=== PATIENT | female | born 1950 | race Asian ===

== ENCOUNTER → 2019-11-03 | Outpatient (CLI) | payer MEDICARE ==
[~2019-11-03] MED LIST: AMLO-150 PO; ATOR20TA37 PO; HYDR25TA6 PO; LIDOCAINE 1%, 20ML ONE; LIDOCAINE 1%-EPI 1:100K, 20ML ONE; LOSA100T14 PO; METO-93 PO; SODIUM BICARBONATE 4.2%, 5ML ONE
== END | disposition home or self-care (01) ==
LOC: CFH 07:13
PROVIDERS: ATTEND Surgery
DX: N63.10 Unspecified lump in the right breast, unspecified quadrant (principal); C50.811 Malignant neoplasm of overlapping sites of right female breast
CPT/HCPCS: 19285; 77065; J3490

== ENCOUNTER 2019-11-06 08:48 | Day surgery (SDC) | payer MEDICARE ==
[~2019-11-06] VITALS: Ht 154.9 cm; Wt 68.4 kg
[2019-11-06] MEDS ORDERED: HYDR25TA6 PO (09:09)
[2019-11-06] MEDS ORDERED: AMLO-150 PO (09:09)
[2019-11-06] MEDS ORDERED: ATOR20TA37 PO (09:09)
[2019-11-06] MEDS ORDERED: LOSA100T14 PO (09:09)
[2019-11-06] MEDS ORDERED: METO-93 PO (09:09)
[2019-11-06] MEDS ORDERED: ISOSULFAN BLUE 10 MG/ML, 5ML IV ONE (09:29)
[2019-11-06] MEDS ORDERED: BUPIVACAINE/PF-EPI 0.5% 1:200K ONE (09:29)
[2019-11-06 10:25] VITALS: BP 170/91
[2019-11-06] MEDS ORDERED: LACTATED RINGERS 1,000 ML IV ONE (10:30)
[2019-11-06] MEDS ORDERED: MIDAZOLAM 1 MG/ML, 2ML ONE (10:44)
[2019-11-06] MEDS ORDERED: FENTANYL PF 250 MCG/5ML ONE (10:45)
[2019-11-06] MEDS ORDERED: LIDOCAINE GEL 2%, 5ML ONE (10:48)
[2019-11-06 10:54] LABS: ALANINE AMINOTRANSFERASE 25 U/L (12-78); ALBUMIN 4.1 g/dL (3.4-5.0); ANION GAP 8 mmol/L (5-15); CALCIUM 8.9 mg/dL (8.5-10.1); CHLORIDE 107 mmol/L (98-107)
[2019-11-06 10:57] LABS: ALKALINE PHOSPHATASE 113 U/L (45-117); BILIRUBIN,TOTAL 0.7 mg/dL (0.2-1.0); CREATININE 0.95 mg/dL (0.55-1.02); TOTAL PROTEIN 8.6 g/dL (6.4-8.2)
[2019-11-06] MEDS ORDERED: OXYcodone 5 MG/5 ML ORAL.SOL UDC PO PRN (11:00)
[2019-11-06] MEDS ORDERED: MEPERIDINE/PF 25MG/ML,1ML IVPush PRN (11:00)
[2019-11-06] MEDS ORDERED: hydrALAzine 20 MG/ML, 1ML IV PRN (11:00)
[2019-11-06] MEDS ORDERED: FENTANYL PF 100 MCG/2ML IV PRN (11:00)
[2019-11-06] MEDS ORDERED: HALOPERIDOL 5 MG/ML IV PRN (11:00)
[2019-11-06] MEDS ORDERED: HYDROmorphone 2 MG/ML, 1ML IVPush PRN (11:00)
[2019-11-06] MEDS ORDERED: PROMETHAZINE 25 MG/ML, 1ML IV PRN (11:00)
[2019-11-06] MEDS ORDERED: LABETALOL 5MG/ML, 20ML IV PRN (11:00)
[2019-11-06] MEDS ORDERED: EPHEDRINE 50 MG/ML, 1ML ONE (11:24)
[2019-11-06] MEDS ORDERED: ONDANSETRON 2MG/ML, 2ML ONE (12:16)
[2019-11-06] MEDS ORDERED: ROCURONIUM 10MG/ML,5ML ONE (12:16)
[2019-11-06] MEDS ORDERED: GLYCOPYRROLATE 0.2MG/1ML, 5ML ONE (12:16)
[2019-11-06] MEDS ORDERED: PROPOFOL 10 MG/ML, 20ML ONE (12:16)
[2019-11-06] MEDS ORDERED: DEXAMETHASONE 4 MG/ML, 1ML ONE (12:16)
[2019-11-06] MEDS ORDERED: NEOSTIGMINE 1 MG/ML, 10ML ONE (12:16)
[2019-11-06] MEDS ORDERED: CEFAZOLIN 1,000 MG ONE (12:16)
[2019-11-06] MEDS ORDERED: SUCCINYLCHOLINE 20 MG/ML, 10ML ONE (12:16)
[2019-11-06] MEDS ORDERED: MORPHINE SULFATE 4 MG/ML, 1ML IVPush PRN (12:30)
[2019-11-06] MEDS ORDERED: ONDANSETRON 2MG/ML, 2ML IVPush PRN (12:30)
[2019-11-06] MEDS ORDERED: HYDROcodone/APAP 7.5-325MG/15ML UDC PO PRN (12:30)
== END 2019-11-06 16:15 | disposition home or self-care (01) ==
LOC: OUT 08:48
PROVIDERS: ATTEND Surgery
DX: C50.811 Malignant neoplasm of overlapping sites of right female breast (principal); I10 Essential (primary) hypertension; Z17.0 Estrogen receptor positive status [ER+]; Z79.899 Other long term (current) drug therapy; Z85.3 Personal history of malignant neoplasm of breast; Z91.013 Allergy to seafood; Z92.21 Personal history of antineoplastic chemotherapy
CPT/HCPCS: 19301; 36415; 38525; 38792; 77065; 80053; 88305; 88307; 88333; 93005; A9541; J0330; J0690; J1100; J2250; J2405; J2704; J2710; J3010

== ENCOUNTER → 2019-11-27 | Outpatient (CLI) | payer MEDICARE ==
[~2019-11-27] MED LIST changes: -LIDOCAINE 1%, 20ML ONE; -LIDOCAINE 1%-EPI 1:100K, 20ML ONE; -SODIUM BICARBONATE 4.2%, 5ML ONE
== END | disposition home or self-care (01) ==
LOC: ROC 08:20
PROVIDERS: ATTEND Radiology Radiation Oncology
DX: C50.911 Malignant neoplasm of unspecified site of right female breast (principal); I25.10 Atherosclerotic heart disease of native coronary artery without angina pectoris; M10.9 Gout, unspecified; E78.00 Pure hypercholesterolemia, unspecified; I10 Essential (primary) hypertension
CPT/HCPCS: 99214; G0463

== ENCOUNTER 2020-01-06 11:40 | Day surgery (SDC) | payer MEDICARE ==
[~2020-01-06] VITALS: Ht 154.9 cm; Wt 67.4 kg
[2020-01-06] MEDS ORDERED: LACTATED RINGERS 1,000 ML IV SCH (12:07)
[2020-01-06] MEDS ORDERED: ERGO500017 PO (12:12)
[2020-01-06] MEDS ORDERED: ANAS1TAB49 PO (12:16)
[2020-01-06] MEDS ORDERED: CRAN500T2 PO (12:16)
[2020-01-06] MEDS ORDERED: HYDR25TA6 PO (12:16)
[2020-01-06] MEDS ORDERED: ASCO10004 PO (12:16)
[2020-01-06] MEDS ORDERED: VITA1CAP PO (12:16)
[2020-01-06] MEDS ORDERED: VITAMIN D PO (12:16)
[2020-01-06 12:22] VITALS: BP 152/79
[2020-01-06] MEDS ORDERED: LIDOCAINE-MPF 1%, 2ML INFIL ONE (12:30)
[2020-01-06] MEDS ORDERED: CHLORHEXIDINE 15 ML UDC MM ONE (12:30)
[2020-01-06] MEDS ORDERED: CHLORHEXIDINE 15 ML UDC ONE (12:30)
[2020-01-06] MEDS ORDERED: ISOSULFAN BLUE 10 MG/ML, 5ML IV ONE (14:08)
[2020-01-06] MEDS ORDERED: BUPIVACAINE/PF-EPI 0.5% 1:200K ONE (14:08)
[2020-01-06] MEDS ORDERED: PROPOFOL 50 ML ONE (14:09)
[2020-01-06] MEDS ORDERED: MIDAZOLAM 1 MG/ML, 2ML ONE (14:09)
[2020-01-06] MEDS ORDERED: FENTANYL PF 250 MCG/5ML ONE (14:09)
[2020-01-06] MEDS ORDERED: DEXAMETHASONE 4 MG/ML, 1ML ONE (14:16)
[2020-01-06] MEDS ORDERED: CEFOTETAN PMX ONE (14:16)
[2020-01-06] MEDS ORDERED: ONDANSETRON 2MG/ML, 2ML ONE (14:16)
[2020-01-06] MEDS ORDERED: HYDROmorphone 1 MG/ML, 1ML INJ IVPush PRN (15:00)
[2020-01-06] MEDS ORDERED: EPHEDRINE 50 MG/ML, 1ML IVPush PRN (15:00)
[2020-01-06] MEDS ORDERED: PROMETHAZINE 25 MG/ML, 1ML IVPush PRN (15:00)
[2020-01-06] MEDS ORDERED: morphine SULFATE 10 MG/ML, 1ML IVPush PRN (15:00)
[2020-01-06] MEDS ORDERED: ONDANSETRON 2MG/ML, 2ML IVPush PRN ×2 (15:00)
[2020-01-06] MEDS ORDERED: DIPHENHYDRAMINE 50 MG/ML, 1ML IVPush PRN ×2 (15:00)
[2020-01-06] MEDS ORDERED: MEPERIDINE/PF 25MG/0.5ML IVPush PRN (15:00)
[2020-01-06] MEDS ORDERED: KETOROLAC 30 MG/1 ML IVPush PRN (15:00)
[2020-01-06] MEDS ORDERED: EPHEDRINE 50 MG/ML, 1ML IM PRN (15:00)
[2020-01-06] MEDS ORDERED: FENTANYL PF 100 MCG/2ML IV PRN (15:00)
[2020-01-06] MEDS ORDERED: OXYcodone 5 MG/5 ML ORAL.SOL UDC PO PRN ×2 (15:00)
[2020-01-06] MEDS ORDERED: EPHEDRINE 50 MG/ML, 1ML ONE (15:08)
[2020-01-06] MEDS ORDERED: KETOROLAC 30 MG/1 ML ONE (15:46)
== END 2020-01-06 17:05 | disposition home or self-care (01) ==
LOC: OR 11:40
PROVIDERS: ATTEND Surgery
DX: D05.91 Unspecified type of carcinoma in situ of right breast (principal); Z11.59 Encounter for screening for other viral diseases; I25.10 Atherosclerotic heart disease of native coronary artery without angina pectoris; I10 Essential (primary) hypertension; Z79.899 Other long term (current) drug therapy; Z85.3 Personal history of malignant neoplasm of breast; Z91.013 Allergy to seafood
CPT/HCPCS: 19301; 88305; C1729; J1100; J1885; J2250; J2405; J2704; J3010; J3490; J7120; U0001

== ENCOUNTER 2020-02-20 08:00 | Outpatient (CLI) | payer MEDICARE ==
[~2020-02-20 08:00] MED LIST changes: +ANAS1TAB49 PO; +ASCO10004 PO; +CRAN500T2 PO; +ERGO500017 PO; +VITA1CAP PO; +VITAMIN D PO
== END 2020-02-20 23:59 | disposition home or self-care (01) ==
LOC: ROC 08:00
PROVIDERS: ATTEND Radiology Radiation Oncology
DX: Z08 Encounter for follow-up examination after completed treatment for malignant neoplasm (principal); C50.411 Malignant neoplasm of upper-outer quadrant of right female breast
CPT/HCPCS: 99213; G0463

== ENCOUNTER 2020-05-14 09:53 | Outpatient (CLI) | payer MEDICARE ==
[~2020-05-14 09:53] MED LIST changes: +ASCO100018 PO; -ASCO10004 PO
== END 2020-05-14 23:59 | disposition home or self-care (01) ==
LOC: ROC 09:53
PROVIDERS: ATTEND Radiology Radiation Oncology
DX: C50.411 Malignant neoplasm of upper-outer quadrant of right female breast (principal); Z17.0 Estrogen receptor positive status [ER+]
CPT/HCPCS: 99213; G0463